=== PATIENT | female | born 1965 | race Caucasian/White ===

== ENCOUNTER → 2017-04-19 | Outpatient (CLI) | payer OTHER ==
[~2017-04-19] MED LIST: ADVAIR 100/501 E1 INH; ALLEGRA180 MG PO; ANTIHISTAMINE PO; ANTIVERT/2525 MG PO; BAYER GENUINE325 M1 PO; CLARITIN10 MG PO; CORDROL20 MG PO; EPI EZ PEN1 MG/ML IM; EPI-PEN1 MG/ML IM; EPI-PEN1 MG/ML MR; EPIPEN 2-PAK1 MG/ML MR; FLONASE 0.05% 121 EA NAS; HYDR25T PO; MEDROL DOSEPAK4 MG PO; MOTRIN800 MG PO; NKHM; NORFLEX100 MG PO; PEPCID20 MG PO; PREDNISONE50 MG PO; SPIRIVA 5 CAPS18 MCG INH; SPIRIVA18 MCG INH; ULTRAM50 MG PO; VENTOLIN H0.09 MG/AC INH; ZITHROMAX250 MG PO; Zofran4 MG PO
[2017-04-21 01:08] LABS: FECAL WBC Final report (None Seen)
== END | disposition home or self-care (01) ==
LOC: LAB 10:42
PROVIDERS: Nurse Practitioner Family
DX: R19.7 Diarrhea, unspecified (principal)

== ENCOUNTER → 2017-08-17 | Day surgery (SDC) | payer OTHER ==
[~2017-08-17] VITALS: Ht 165.1 cm; Wt 89.8 kg
[~2017-08-17] MED LIST changes: +TOPROL XL25 MG PO
--- NOTE | ~2017-08-17 | O ---
[place], [place] OPERATIVE NOTE NAME: LAN RUBY UNIT #: [id number] ROOM: DOCTOR: IRWIN MARTIN MD BIRTHDATE: [birth year] DOS: 08/17/2017 GASTROENDOSCOPIC REPORT. INDICATIONS: This is a 51-year-old who has presented with change in bowel habits, alteration in bowel, constipation, diarrhea, undergoing investigation. ALLERGIES: NONSTEROIDAL ANTI-INFLAMMATORIES and SULFA. FAMILY HISTORY: Grandmother with gastric carcinoma. PAST SURGICAL HISTORY: . PAST MEDICAL HISTORY: Hypertension, asthma. SOCIAL HISTORY: Smoker, nonalcohol consumer. PROCEDURE: Today's procedure part of investigation is colonoscopy plus polypectomy. PREMEDICATION: Versed and Diprivan. SCOPE: Olympus forward-viewing colonoscope 10L video. REPORT: After putting the patient in the left lateral position and after application of lubricant to the scope, the scope was introduced. Thereafter, under direct visualization, I advanced through the length of colon without difficulty. Diverticulosis was identified. Sessile polypoid lesion in rectal pouch with piecemeal polypectomy removed. Base of the cecum explored, appendiceal orifice identified, and ileocecal valve was defined. The patient was gradually extubated from ascending, transverse, descending colon. She tolerated the procedure well. IMPRESSION: Sessile colonic polyp, sigmoid colon, status post piecemeal polypectomy, diverticulosis. PLAN AND DISCUSSION: An element of irritable bowel syndrome in this patient is eminent. I am going to start her on dicyclomine 10 mg 1 every day. High-fiber diet was recommended. Follow up as outpatient routinely with you in office, p.r.n. visit with us in GI Clinic. I thank you very much again Alecia Geovanna Galvin for your kind referral. Photographic series have been attached to the chart for future reference and documentation. [place], [place] OPERATIVE NOTE NAME: LAN RUBY UNIT #: [id number] ROOM: DOCTOR: IRWIN MARTIN MD BIRTHDATE: [birth year] IRWIN MARTIN MD CM:OPRECORD:OPERATIVE NOTE 1210 GEOVANNA MARTIN MD 08/17/17 1338 interface
[2017-08-17 10:45] VITALS: BP 156/82
[2017-08-17 12:05] VITALS: BP 125/60
[2017-08-17 12:20] VITALS: BP 130/60
[2017-08-17 12:35] VITALS: BP 137/74
== END | disposition home or self-care (01) ==
LOC: SDC 08-15 10:15
DX: K62.1 Rectal polyp (principal); I10 Essential (primary) hypertension; J44.9 Chronic obstructive pulmonary disease, unspecified; F17.210 Nicotine dependence, cigarettes, uncomplicated; K57.30 Diverticulosis of large intestine without perforation or abscess without bleeding; Z80.0 Family history of malignant neoplasm of digestive organs; Z98.890 Other specified postprocedural states; Z88.8 Allergy status to other drugs, medicaments and biological substances; Z88.2 Allergy status to sulfonamides; Z82.49 Family history of ischemic heart disease and other diseases of the circulatory system

== ENCOUNTER → 2017-09-14 | Outpatient (CLI) | payer OTHER | END | disposition home or self-care (01) | LOC: RAD 14:54 | DX: J44.9 Chronic obstructive pulmonary disease, unspecified (principal); I10 Essential (primary) hypertension; M41.84 Other forms of scoliosis, thoracic region; M41.86 Other forms of scoliosis, lumbar region; Z87.891 Personal history of nicotine dependence ==

== ENCOUNTER → 2017-10-04 | Outpatient (CLI) | payer OTHER ==
[~2017-10-04] MED LIST changes: +ALL DAY ALLERGY10 MG PO; +EPIPEN 2-P0.3 MG/0.3 IJ; +LEVAQUIN750 M1 PO; +LOPRESSOR25 MG PO; +LOSARTAN POTASS50 M1 PO; +PREDNISONE10 MG PO
== END | disposition home or self-care (01) ==
LOC: MAMMO 15:20
DX: Z12.31 Encounter for screening mammogram for malignant neoplasm of breast (principal)

== ENCOUNTER 2017-10-05 03:33 | Inpatient (IN) | payer OTHER ==
[~2017-10-05] VITALS: Ht 165.1 cm; Wt 90.9 kg
[2017-10-05] VITALS (9 sets, daily range): BP systolic 111–165; BP diastolic 60–103
--- NOTE | ~2017-10-05 | CON ---
[place], [place] REPORT OF CONSULTATION [facility]: LAN [id number] UNIT #: [id number] ROOM: 407 DOCTOR: FAITH BARROSO DO BIRTHDATE: [birth year] DOS: 10/06/2017 This is to be attached to Dr. Jordan's consult note, which he will dictate separately. REASON FOR CONSULTATION: Shortness of breath. CHIEF COMPLAINT: Dyspnea. HISTORY OF PRESENT ILLNESS: The patient is a 51-year-old female who presented with complaints of shortness of breath. They have been persistent for several weeks and she states that she had recently been treated with a course of doxycycline and prednisone as well as albuterol and her symptoms did not improve significantly. She states that over the last several days, she has felt increasingly short of breath and she feels dehydrated. She has a history of emphysema and asthma, but she is not oxygen dependent. She denies any chest pain, any nausea, vomiting, diarrhea, dysuria or any other symptoms. PAST MEDICAL HISTORY: Positive for emphysema, hypertension, irritable bowel syndrome, asthma, obesity and tobacco abuse. PAST SURGICAL HISTORY: Positive for a section, colonoscopy and arthroscopy of the left knee. SOCIAL HISTORY: The patient does smoke half a pack a day and has done so for at least 30 years. Alcohol and drug use negative. FAMILY HISTORY: Father is at age 56 from brain cancer. Mother is alive and has asthma. ALLERGIES: SULFA ANTIBIOTICS, AMOXICILLIN, IBUPROFEN. HOME MEDICATIONS: Cetirizine, metoprolol and Spiriva. REVIEW OF SYSTEMS: GENERAL: Denies fevers or chills. HEENT: Denies vision changes, drainage, discharge, hearing changes, throat pain. CARDIOVASCULAR: Denies chest pain, palpitations or lower extremity edema. RESPIRATORY: Reports shortness of breath, but denies hemoptysis, wheezing or productive cough. ABDOMINAL: Denies any abdominal pain, nausea, vomiting, diarrhea. GENITOURINARY: Denies dysuria, hematuria or frequency. NEUROLOGIC: Denies any lightheadedness or dizziness. PSYCHIATRIC: Denies any depression, anxiety, or drug dependence. ENDOCRINE: Denies polydipsia, heat intolerance or cold intolerance. SKIN: Denies any new rashes or lesions. PHYSICAL EXAMINATION: VITAL SIGNS: Most recent set of vital signs, temperature is 98.5, heart rate is [facility] [place], [place] REPORT OF CONSULTATION NAME: LAN RUBY [facility] [id number] UNIT #: [id number] ROOM: 407 DOCTOR: FAITH BARROSO DO BIRTHDATE: [birth year], respiratory rate 20, blood pressure 108/60 and 95% on room air. GENERAL: Awake, alert, oriented, not in acute distress. HEENT: Head normocephalic, atraumatic. Eyes PERRL. No lesions, no ulcerations, nonicteric, no drainage. ENT: No lesions, no scars, no masses. NECK: Without lesions. Trachea midline. LUNGS: Shortness of breath. Minimal scattered wheezes. Mild to moderate diminishing in breath sounds. ABDOMEN: Soft, positive bowel sounds, nontender, nondistended. EXTREMITIES: No erythema, clubbing or cyanosis. NEUROLOGIC: Grossly intact without focal neuro deficit. PSYCHOLOGICAL: Good historian. Fair judgment and insight. SKIN: Warm and dry, no rashes, no nodules. LABORATORY DATA: CBC shows a white count of 14.8 after the initial 6.5 at the time of admission. Hemoglobin 12.3, hematocrit 37.7, platelet count 255. Chemistry: Sodium 142, potassium 4.2, chloride 108, carbon dioxide 24, BUN 10, creatinine 0.9. GFR is estimated more than 60. Glucose is 141. A1c is 5.8, calcium 8.8, phosphorus 1.4, magnesium 1.7, triglycerides 78, cholesterol 165, LDL 88, VLDL 16, HDL 61. Vitamin B12 is 217, vitamin D is 10.9, folate 11.97, TSH 0.273 and T4 is ____. IMAGING: Chest x-ray, there was no definitive acute cardiopulmonary disease as read by the radiologist. ASSESSMENT AND PLAN: 1. Acute on chronic obstructive pulmonary disease exacerbation. 2. Obesity. 3. Tobacco abuse. 4. Irritable bowel syndrome. 5. Hypertension. We will continue with the current treatment with DuoNebs, Solu-Medrol, Mucinex, Rocephin and azithromycin. Oxygen is being titrated. The patient seems to be stable. Smoking cessation was discussed. Nicotine replacement if needed. We will reevaluate tomorrow. Otherwise, continue with current care. FAITH BARROSO DO [place], [place] REPORT OF CONSULTATION NAME: LAN RUBY UNIT #: [id number] ROOM: [facility] DOCTOR: FAITH BARROSO DO BIRTHDATE: [birth year] CLAYTON JORDAN MD CM:CONSTR:REPORT OF CONSULTATION 1216 10/07/17 0553 interface
--- NOTE | ~2017-10-05 | PR ---
[place], [place] PROGRESS NOTE NAME: LAN RUBY UNIT #: [id number] ROOM: 407 DOCTOR: FAITH BARROSO DO BIRTHDATE: [birth year] DOS: 10/07/2017 ADDENDUM This progress noted to be attached that dictated separately by Dr. Jordan. SUBJECTIVE: The patient was evaluated today. She is awake, alert, responsive. No nausea, vomiting, diarrhea, chest pain or dizziness. She states her breathing is significantly improved, but she states she is still having some wheezing. No acute events overnight. OBJECTIVE EXAMINATION: VITAL SIGNS: Most recent set of vital signs, temperature 98.5, pulse rate 75, respiratory rate 20, blood pressure 135/74, bedside pulse oximetry is 97% on room air. GENERAL: The patient awake, alert, oriented, in no acute distress. CARDIOVASCULAR: S1, S2 audible. No abnormal rhythm and normal rate. PULMONARY: Diminished breath sounds with minimal wheezing, no crackles, no rhonchi can be heard. EXTREMITIES: Lower extremities, no edema or erythema. NEUROLOGIC: No acute neuro deficits. PSYCH: Good historian, good judgment and insight. LABORATORY DATA: WBC is 14.4, hemoglobin 11.9, hematocrit 37.4 and platelets 246. Sodium is 144, potassium 4.1, chloride 110, carbon dioxide 24, BUN 14, creatinine 0.89, glucose 143. Hemoglobin A1c is 5.8, calcium 8.5. IMAGING: X-ray done this morning showed normal chest evaluation, clear lung delacruz as read by the radiologist. IMPRESSION AND PLAN: 1. Acute exacerbation of chronic obstructive pulmonary disease. 2. Acute asthma exacerbation. The patient has been on Solu-Medrol 60 b.i.d. as well as azithromycin will continue with breathing treatments, steroids and antibiotics. The patient is okay for being discharged at the discretion of the primary team. For more information, please see Dr. Jordan's progress note. FAITH BARROSO DO [place], [place] PROGRESS NOTE NAME: LAN RUBY UNIT #: [id number] ROOM: 407 DOCTOR: FAITH BARROSO DO BIRTHDATE: [birth year] CLAYTON JORDAN MD CM:CECILIA [id number] FAITH BARROSO DO 10/10/17 1050 interface
--- NOTE | ~2017-10-05 | PR ---
[place], [place] PROGRESS NOTE NAME: [id number] UNIT #: [id number] ROOM: 407 DOCTOR: JULIAN PRESTON MD,CLAYTON BIRTHDATE: [birth year] DOS: 10/07/2017 SUBJECTIVE: The patient was independently seen and examined with [id number] encounter. History was otherwise personally confirmed. Physical examination performed. The assessment and management personally completed for this patient. The patient was seen by the medical accounts receivable specialist, his note was approved as well. She has been noted progressive reduction and improvement in respiratory symptoms of coughing, shortness breath and wheezing. The beta marge were discontinued yesterday. OBJECTIVE: VITAL SIGNS: Essentially noted normal without any tachycardia. Heart rates were noted at 75 beats per minute. LUNGS: Noted without any wheezing or crackles. ABDOMEN: Soft, nontender. LABORATORY DATA: CBC for the patient, WBC count was 14.4, mild anemia, otherwise normal CBC. BMP: Glucose 143, that was normal. The chest x-ray 2-view which was obtained today for the patient as ordered. The patient was noted without any acute pulmonary infiltration. IMPRESSION: 1. Resolving exacerbation of chronic obstructive pulmonary disease and bronchial asthma concomitant with tracheobronchitis. 2. Chronic obesity. PLAN OF TREATMENT: Abstinence from tobacco use, tapering dose of prednisone, oral antibiotic on discharge and to continue Spiriva inhaler. She was also advised for followup in the office post discharge for comprehensive assessment for her pulmonary status. CLAYTON JORDAN MD CM:PNTRANS [id number] CLAYTON PRESTON MD 10/07/17 1146 interface
--- NOTE | ~2017-10-05 | CON ---
[place], [place] REPORT OF CONSULTATION NAME: LAN RUBY [facility] #: [id number] UNIT #: [id number] ROOM: 407 DOCTOR: CLAYTON ROSARIO MD BIRTHDATE: [birth year] DOS: 10/06/2017 ADDENDUM The patient was independently seen and examined today with [id number] encounter, history and physical examination personally confirmed. All the labs were reviewed. The assessment and management was personally made for the patient today's visit as well. The note done by the certified ophthalmic medical technician was approved. CONSULTATION REQUESTED BY: Hospitalist services. REASON FOR CONSULTATION: Assess the patient for COPD. HISTORY OF PRESENT ILLNESS: A 51-year-old female unknown to me with past history diagnosis of COPD, being treated by the primary care physician. She has been noted ongoing symptoms since 07/2017. She has been treated with the different doses of prednisone. The patient on different ____ antibiotic without any resolution of the symptom. Symptoms have been noted progressive. She does have symptoms of cough, which have been noted small intermittently. She denies any symptoms of chest pain or hemoptysis. Shortness of breath was noted the main symptom occurring with exertion with wheezing at time. The patient denies symptoms of hemoptysis. The patient stated that she had been noted tachycardia, started on metoprolol for the patient resulting in worsening of those stated symptoms since then as well. REVIEW OF SYSTEMS: Already completed by the certified ophthalmic medical technician. PAST MEDICAL HISTORY: 1. Diagnosis of COPD. 2. Essential hypertension. 3. Irritable bowel syndrome. 4. Bronchial asthma since childhood. 5. History of nicotine dependence. 6. Moderate obesity. PAST SURGICAL HISTORY: 1. The left knee arthroscopy. 2. x 2. 3. History of past colonoscopy. SOCIAL HISTORY: The patient was noted with history of tobacco use noted from the age of 17 years older or so and smoking about half a pack of cigarettes per day, does have 2 children, lives at home. Denies any history of alcohol use or any illicit drugs or any occupation related pulmonary exposure. FAMILY HISTORY: The patient's father at age 5656 years old, complication of brain cancer. Mother was reported with history of bronchial asthma. HOME MEDICATIONS: Reported use of Zyrtec, EpiPen, metoprolol tartrate, and [place], [place] REPORT OF CONSULTATION NAME: LAN RUBY UNIT #: [id number] ROOM: 407 DOCTOR: JULIAN PRESTON MD,CLAYTON BIRTHDATE: [birth year] [place]. DRUG ALLERGIES: REPORTED : 1. SULFA DRUGS. 2. AMOXICILLIN. 3. IBUPROFEN. PHYSICAL EXAMINATION: GENERAL: This is a 51-year-old female, who has been currently sitting on the bed without any acute distress at this time. VITAL SIGNS: Height of 5 feet 5 inches, weight of 200 pounds, BMI 33.3. Vital signs for the patient, which has been recorded showed the temperature noted as normal, respiratory rate recorded at 18, heart rate 98-119, blood pressure 130/73-140/78. Pulse oxygen saturation noted on room air 95% saturation. HEENT: Shows moderate obesity. Head was atraumatic. NECK: Supple. CARDIOVASCULAR: S1, S2 audible. LUNGS: Show no reduction in the breath sounds with reduced air exchange with scattered expiratory wheezing, no crackles. ABDOMEN: Soft, obese, nontender, bowel sounds present. EXTREMITIES: Shows mild to moderate obesity without edema, clubbing, cyanosis. CENTRAL NERVOUS SYSTEM: Cranial nerves 2-12 intact. MUSCULOSKELETAL: No deformities visible. SKIN: No lesions or rashes. LABORATORY AND DIAGNOSTIC DATA: Reviewed on 10/05/2017, CBC was essentially noted to normal. The PT/INR was normal on 10/05/2017; arterial blood gas 10/05/2017 pO2 was noted as 43, pH 7.36, pCO2 of 44.5. CMP of 10/05/2017 was noted with glucose 107, BUN and creatinine were normal. Remaining electrolytes normal. CK-MB and troponin were normal. CBC this morning, WBC count 14.8, hemoglobin 12.3, hematocrit 37.7, platelet counts were normal, 92% segmented neutrophils. BMP, normal BUN and creatinine. Glucose 141. Chest x-ray, 1-view, which was done in the Emergency Room was noted without any acute pulmonary infiltration. IMPRESSION: 1. The patient who has been currently admitted to the hospital noted with acute hypoxic respiratory failure, progressive worsening of respiratory status, resulting in acute exacerbation of bronchial asthma and exacerbation of chronic obstructive pulmonary disease, severity of bronchial asthma was unknown. 2. History of chronic nicotine dependence. 3. Mild hyperglycemia secondary to use of corticosteroids. 4. Chronic moderate obesity as well. 5. Nicotine dependence. 6. The patient with the tachycardia most likely related to the exacerbation of underlying pulmonary disease, less likely and worsening of the symptoms of bronchospasm with use of the beta-blockers. PLAN OF TREATMENT: Continue the oxygen supplementation, maintain saturation 90% or greater. Continue current dose of Solu-Medrol 60 mg b.i.d. Her home [place], [place] REPORT OF CONSULTATION NAME: LAN RUBY UNIT #: [id number] ROOM: 407 DOCTOR: JULIAN PRESTON MD,CLAYTON BIRTHDATE: [birth year] medication, which has been resumed. The patient was noted with sinus tachycardia related to the exacerbation of chronic obstructive pulmonary disease, bronchial asthma rather than underlying intrinsic heart problem, a clinical consideration; however, the patient may require the assessment by the Cardiology with the echocardiogram and other assessment if necessary to exclude any cardiac dysrhythmias or underlying cardiac disease. For possible worsening of the symptoms, especially bronchial asthma, ____ considered use of the beta-blockers. I will discontinue the patient's beta marge at this time. Monitor the tachycardia. Hopefully, with the resolution of the exacerbation of chronic obstructive pulmonary disease and bronchial asthma, the tachycardia should resolve itself. Consider Cardiology consultation for this patient as well. Other supportive plan and management and care. Usual treatment, other supportive therapy, plan of care. Nicotine replacement patch to overcome the nicotine withdrawal as well. Obtain a PA lateral chest x-ray to exclude any hidden infiltration, area of atelectasis with the lateral view especially of the lower lobes to be done in the morning. Other supportive plan of management. Thanks for allowing me to participate in the care of this patient. CLAYTON JORDAN MD CM:CONSTR:REPORT OF CONSULTATION 1403 10/07/17 1309 interface
[~2017-10-05 03:33] MED LIST changes: -ALL DAY ALLERGY10 MG PO; -EPIPEN 2-P0.3 MG/0.3 IJ; -LEVAQUIN750 M1 PO; -LOPRESSOR25 MG PO; -LOSARTAN POTASS50 M1 PO; -PREDNISONE10 MG PO
[2017-10-05 04:02] LABS: BASO % 0.6 % (0.0-1.0); EOS # 0.6 10*3/uL (0.0-0.4); EOS % 8.4 % (1.0-4.0); HEMOGLOBIN 13.8 g/dl (12.0-16.0); LYMPH # 2.7 10*3/uL (1.3-4.4); MEAN CELL VOLUME 96.3 fl (81.0-99.0); MEAN CORPUSCULAR HGB 31.7 pg (27.0-31.0); MEAN CORPUSCULAR HGB CONC 32.9 g/dl (33.0-37.0); MEAN PLATELET VOLUME 9.5 fl (9.6-12.3); MONO # 0.4 10*3/uL (0.1-1.0); MONO % 5.4 % (3.0-9.0); NEUT # 2.8 10*3/uL (2.3-7.9); NEUT % 43.3 % (47.0-73.0); PLATELET COUNT AUTOMATED 278 10*3/uL (130-400); RED BLOOD COUNT 4.36 10*6/uL (4.10-5.10); RED CELL DISTRI WIDTH 14.4 % (0-14.5); WHITE BLOOD COUNT 6.5 10*3/uL (4.8-10.8)
[2017-10-05 04:09] LABS: INTERNATIONAL NORM RATIO 0.9 (2.0-3.5)
[2017-10-05 04:16] LABS: ABG BASE EXCESS -0.5 mmol/L (-2.0-2.0); ABG HCO3 24.6 mmol/l (22-26); ABG O2 SATURATION 78.7 % (95-97); ARTERIAL BLOOD GAS PCO2 44.5 mmHg (35-45); ARTERIAL BLOOD GAS PH 7.361 (7.35-7.45); ARTERIAL BLOOD GAS PO2 43.8 mmHg (80-90)
[2017-10-05 04:19] LABS: ALBUMIN 3.7 gm/dl (3.1-4.5); ALKALINE PHOSPHATASE 89 U/L (45-117); BUN 8 mg/dl (7-24); CHLORIDE 109 mmol/L (98-107); CREATININE 0.94 mg/dL (0.55-1.02); POTASSIUM 3.8 mmol/L (3.5-5.1); SGOT/AST 11 IU/L (3-35); SGPT/ALT 15 U/L (12-78); SODIUM 143 mmol/L (136-145); TOTAL PROTEIN 6.9 gm/dL (6.4-8.2)
[2017-10-05 04:20] LABS: TROPONIN I < 0.015 ng/ml (<0.045)
--- NOTE | 2017-10-05 05:14 | NUR ---
PT LYING IN BED IN ROOM WITH FAMILY. VSS. WILL CONTINUE TO MONITOR.
[2017-10-05 05:28] LABS: BILIRUBIN NEGATIVE (NEGATIVE); BLOOD 2+ (NEGATIVE); CLARITY SL CLOUDY (CLEAR); COLOR YELLOW (YELLOW); GLUCOSE NEGATIVE (NEGATIVE); KETONE NEGATIVE (NEGATIVE); LEUKO ESTERASE 1+ (NEGATIVE); NITRITE NEGATIVE (NEGATIVE); PH 5.5 (5.0-9.0); SPECIFIC GRAVITY 1.015 (1.005-1.030); UROBILINOGEN 0.2 E.U./dl (0.2-1.0)
[2017-10-05 05:36] LABS: RBC 16-20 rbc/hpf (0-2)
[2017-10-05 05:37] LABS: BACTERIA 2+
--- NOTE | 2017-10-05 05:50 | NUR ---
A 51, admitted to , under the services of LIOR Avila DO with a diagnosis of EXACERBATION OF COPD. Chief complaint is DYPNEA X1 MONTH. Patient arrived via stretcher from ER. Monitor applied. Initial assessment completed. Vital signs taken and recorded. LIOR AVILA DO notified of admission to the unit. Orders received. See assessment for past medical history, medications and allergies. Patient and/or family oriented to unit. [facility] visitation policy reviewed. Clothing/patient valuable form completed. KALPESH JOSE
[2017-10-05] MEDS ORDERED: ALL DAY ALLERGY10 MG PO (06:07)
[2017-10-05] MEDS ORDERED: EPIPEN 2-P0.3 MG/0.3 IJ (06:20)
[2017-10-05 12:05] LABS: MEAN CELL VOLUME 95.8 fl (81.0-99.0); MEAN CORPUSCULAR HGB 31.9 pg (27.0-31.0); MEAN CORPUSCULAR HGB CONC 33.3 g/dl (33.0-37.0); MEAN PLATELET VOLUME 9.6 fl (9.6-12.3); PLATELET COUNT AUTOMATED 274 10*3/uL (130-400); RED BLOOD COUNT 4.07 10*6/uL (4.10-5.10); RED CELL DISTRI WIDTH 14.3 % (0-14.5); WHITE BLOOD COUNT 6.5 10*3/uL (4.8-10.8)
[2017-10-05 12:22] LABS: TOTAL CELLS COUNTED 100 #CELLS
[2017-10-05 12:23] LABS: PLATELET SUFFICIENCY NORMAL (NORMAL)
[2017-10-05 12:28] LABS: CREATININE 1.18 mg/dL (0.55-1.02); PHOSPHOROUS 1.4 mg/dL (2.5-4.9); POTASSIUM 3.4 mmol/L (3.5-5.1)
--- NOTE | 2017-10-05 13:06 | NUR ---
PATIENT IS ORDERED BOTH ZITHROMAX AND VIBRAMYCIN. THIS MAY BE A DUPLICATION IN ANTIMICROBIAL COVERAGE. PLEASE ASSESS NEED FOR BOTH. THANKS, KEIRA LOPEZ, PHARMD [facility]
[2017-10-05 13:18] LABS: VITAMIN D, 25-HYDROXY 10.9 ng/mL (30-100)
--- NOTE | 2017-10-05 13:59 | NUR ---
SPOKE WITH DR RIVERA REGARDING ELEVATED HEART RATE. PER DOC, WILL REVIEW MEDICATIONS.
[2017-10-05] MEDS ORDERED: LOPRESSOR25 MG PO (15:25)
--- NOTE | 2017-10-05 20:06 | NUR ---
LAB RESULTS AND ORDERS REVIEWED
[2017-10-06] VITALS: BP 110/64
[2017-10-06 06:10] LABS: HEMATOCRIT 37.7 % (37.0-47.0); HEMOGLOBIN 12.3 g/dl (12.0-16.0); MEAN CELL VOLUME 97.9 fl (81.0-99.0); MEAN CORPUSCULAR HGB 31.9 pg (27.0-31.0); MEAN CORPUSCULAR HGB CONC 32.6 g/dl (33.0-37.0); MEAN PLATELET VOLUME 9.7 fl (9.6-12.3); PLATELET COUNT AUTOMATED 255 10*3/uL (130-400); RED BLOOD COUNT 3.85 10*6/uL (4.10-5.10); RED CELL DISTRI WIDTH 14.5 % (0-14.5); WHITE BLOOD COUNT 14.8 10*3/uL (4.8-10.8)
[2017-10-06 06:32] LABS: BUN 10 mg/dl (7-24); CHLORIDE 108 mmol/L (98-107); CHOLESTEROL 165 mg/dL (<200); POTASSIUM 4.2 mmol/L (3.5-5.1); SODIUM 142 mmol/L (136-145); TRIGLYCERIDES 78 mg/dl (<150); VLDL CHOLESTEROL 16 mg/dL (6-40)
[2017-10-06 06:42] LABS: FREE T4 0.87 ng/dl (0.76-1.46); HDL CHOLESTEROL 61 mg/dl (40-60); LDL CHOLESTEROL 88 mg/dL (9-159); THYROID STIM HORMONE (HS) 0.273 uIU/ml (0.358-4.75)
[2017-10-06 06:59] LABS: TOTAL CELLS COUNTED 100 #CELLS
[2017-10-06 07:00] LABS: PLATELET SUFFICIENCY NORMAL (NORMAL)
[2017-10-06 08:00] VITALS: BP 122/64; BP 140/78
--- NOTE | 2017-10-06 08:00 | NUR ---
RESTING AT SIDE OF BED EATING BREAKFAST. DENIES C/O CHEST PAIN OR S.O.B. CALL LIGHT SYSTEM REINFORCED FOR ASSISTANCE. SEE SHIFT ASSESSMENT.
--- NOTE | 2017-10-06 08:49 | NUR ---
DR JORDAN HERE & IS AWARE OF CONSULT.
--- NOTE | 2017-10-06 09:00 | NUR ---
Yarn Texture Machine Operator in to talk to patient. Patient states lives at home with . There are few steps in the home. Physician: chan krishna Pharmacy: [facility] health services: none Patient's level of ADLs: INDEPENDENT Patient has working utilities: all working DME: none Follow-up physician's appointment after d/c: will be made by hospitalist nurse director upon discharge Does patient want to access PORTAL?: no Discharge plan discussed with patient, patient lives at home with , she is independent in adls and ambulation, works, drives, patient states she will be going back home and denies any home needs. HARRY ALDRIDGE
[2017-10-06 12:00] VITALS: BP 108/60
--- NOTE | 2017-10-06 15:32 | NUR ---
Shift chart check completed.24 HR chart check completed.
[2017-10-06 16:00] VITALS: BP 136/69
[2017-10-06 20:00] VITALS: BP 125/72
--- NOTE | 2017-10-06 20:00 | NUR ---
LAB RESULTS AND ORDERS REVIEWED
[2017-10-07] VITALS: BP 112/56
[2017-10-07 06:26] LABS: HEMATOCRIT 37.4 % (37.0-47.0); HEMOGLOBIN 11.9 g/dl (12.0-16.0); MEAN CELL VOLUME 98.4 fl (81.0-99.0); MEAN CORPUSCULAR HGB 31.3 pg (27.0-31.0); MEAN CORPUSCULAR HGB CONC 31.8 g/dl (33.0-37.0); MEAN PLATELET VOLUME 9.5 fl (9.6-12.3); PLATELET COUNT AUTOMATED 246 10*3/uL (130-400); RED CELL DISTRI WIDTH 14.7 % (0-14.5); WHITE BLOOD COUNT 14.4 10*3/uL (4.8-10.8)
[2017-10-07 06:49] LABS: BUN 14 mg/dl (7-24); CHLORIDE 110 mmol/L (98-107); CREATININE 0.89 mg/dL (0.55-1.02); POTASSIUM 4.1 mmol/L (3.5-5.1); SODIUM 144 mmol/L (136-145)
[2017-10-07 07:25] LABS: PLATELET SUFFICIENCY NORMAL (NORMAL); TOTAL CELLS COUNTED 100 #CELLS
[2017-10-07 08:00] VITALS: BP 135/74
--- NOTE | 2017-10-07 08:00 | NUR ---
RESTING AT SIDE OF BED, STATES "FEELING ALOT BETTER" EASY RESPIRATIONS WITH SKIN W/D. SEE SHIFT ASSESSMENT.
--- NOTE | 2017-10-07 09:00 | NUR ---
case management visits with patient, patient denies any home needs
[2017-10-07] MEDS ORDERED: LEVAQUIN750 M1 PO (09:43)
[2017-10-07] MEDS ORDERED: PREDNISONE10 MG PO (09:43)
--- NOTE | 2017-10-07 11:18 | NUR ---
PT DECLINES FLU VACCINE.
[2017-10-07] MEDS ORDERED: LOSARTAN POTASS50 M1 PO (11:29)
--- NOTE | 2017-10-07 11:29 | NUR ---
PT QUESTIONING GOING HOME ON LOPRESSOR SINCE IS WAS DISCONTINUED WHILE SHE WAS HERE & TOOK COZAAR. SPOKE WITH DR RIVERA & INFORMED THAT PT REQUESTS TO SPEAK WITH HIM REGARDING THIS ISSUE.
--- NOTE | 2017-10-07 11:52 | NUR ---
DR RIVERA IN TO SEE PT & MAKE CLARIFICATIONS TO MED LIST. PT VOICES UNDERSTANDING.
--- NOTE | 2017-10-07 13:00 | NUR ---
Discharge instructions reviewed with patient/family. Patient receptive and verbalizes understanding. Written instructions given to patient/family. RICARDO CUI
== END 2017-10-07 13:00 | disposition home or self-care (01) | DRG 871 ==
LOC: ED 03:33 → EDHOLD 04:30 → 4E 04:30
PROVIDERS: Emergency Medicine Emergency Medical Services; Internal Medicine; ADMIT Internal Medicine
DX: A41.9 Sepsis, unspecified organism (principal); J96.01 Acute respiratory failure with hypoxia; J44.1 Chronic obstructive pulmonary disease with (acute) exacerbation; J45.41 Moderate persistent asthma with (acute) exacerbation; D72.1 Eosinophilia; F17.200 Nicotine dependence, unspecified, uncomplicated; E87.8 Other disorders of electrolyte and fluid balance, not elsewhere classified; K58.2 Mixed irritable bowel syndrome; E66.9 Obesity, unspecified; D72.820 Lymphocytosis (symptomatic); E53.8 Deficiency of other specified B group vitamins; E55.9 Vitamin D deficiency, unspecified; K58.9 Irritable bowel syndrome, unspecified; Z71.6 Tobacco abuse counseling; Z88.2 Allergy status to sulfonamides; Z88.1 Allergy status to other antibiotic agents; Z82.49 Family history of ischemic heart disease and other diseases of the circulatory system; Z83.3 Family history of diabetes mellitus

== ENCOUNTER 2019-05-16 21:21 | Inpatient (IN) | payer BC ==
[~2019-05-16] VITALS: Ht 165.1 cm; Wt 94.5 kg
--- NOTE | ~2019-05-16 | EKG ---
[place], [place] ELECTROCARDIOGRAM REPORT NAME: LAN RUBY UNIT #: [id number] ROOM: 504 DOCTOR: OLEGARIO DRAFT REPORT BIRTHDATE: [birth year] [facility] Test Date: 2019-05-17 Test Time: 02:53:06 Pat Name: LAN RUBY Department: Room: [facility] Gender: F Crystal Growing Technician: Giuliana [place] : 1965 Requested By: NISHA FERNANDEZ Order Number: [id number] Reading MD: Jhony Flores MD Measurements Intervals [place] Rate: 62 P: 47 MI: 165 QRS: -65 QRSD: 132 T: 36 QT: 466 QTc: 474 Interpretive Statements Sinus rhythm Nonspecific IVCD with LAD Compared to ECG 08/22/2018 00:09:42 Intraventricular conduction delay now present Sinus tachycardia no longer present T-wave abnormality no longer present Possible ischemia no longer present Electronically Signed On 05-17-2019 12:02:57 PDT by Jhony Flores MD CM:EKGRPT:ELECTROCARDIOGRAM REPORT 0253 1202 NISHA HILARIO DRAFT REPORT NISHA FERNANDEZ DO
--- NOTE | ~2019-05-16 | CON ---
[place], [place] REPORT OF CONSULTATION NAME: LAN RUBY UNIT #: [id number] ROOM: 504 DOCTOR: ELIO SWENSONKATELYNN BIRTHDATE: [birth year] DOS: 05/17/2019 HISTORY OF PRESENT ILLNESS: A 53-year-old female admitted with chest pressure. EKG revealed right bundle branch block. No acute ST-T abnormalities. Cardiac enzymes have been negative. The patient did have an echocardiogram. For some reason, this report is not there, but inquiring showed an ejection fraction of about 60-65%. I am going to review the echocardiogram to assess the valvular status. Did have a stress test done in 2017. It was negative. PAST MEDICAL HISTORY: Significant for hypertension, tobacco abuse, obesity. FAMILY HISTORY: Positive for ____ and also she does have centrilobular emphysema, history of drug-induced anaphylaxis, tobacco abuse. PAST SURGICAL HISTORY: Arthroscopy, , and colonoscopy. SOCIAL HISTORY: Does not drink alcohol. Still continues to smoke half a pack per day of cigarettes. ALLERGIES: Multiple to SULFA, AMOXICILLIN, HYDROCHLOROTHIAZIDE, LISINOPRIL, and LOSARTAN. HOME MEDICATIONS: Amlodipine. REVIEW OF SYSTEMS: CONSTITUTIONAL: No fever, no chills. HEENT: No visual disturbance or hearing problems. CARDIOVASCULAR: Reports chest pressure. RESPIRATORY: Denies shortness of breath. GASTROINTESTINAL: No nausea, no vomiting. GENITOURINARY: No dysuria. NEUROLOGIC: Stable. PHYSICAL EXAMINATION: VITAL SIGNS: Blood pressure is 120/60. She is in sinus rhythm. HEENT: Unremarkable. NECK: Supple, no JVD. LUNGS: Diminished air entry. HEART: Heart sounds are regular. Positive wheezing. ABDOMEN: Soft, obese. EXTREMITIES: About 1-2+ edema. NEUROLOGICAL: Intact. LABORATORY DATA: Sodium 139, potassium 3.6, creatinine is 0.9. Liver functions are normal. Troponins have been negative. INR is normal. Hemoglobin and hematocrit within normal limits. Chest x-ray showed no CHF. IMPRESSION: Chest pressure, atypical pain, bundle branch block, right bundle not left bundle, hypertension, hyperlipidemia, irritable bowel syndrome, tobacco abuse. [place], [place] REPORT OF CONSULTATION NAME: LAN RUBY UNIT #: [id number] ROOM: [facility] DOCTOR: KATELYNN BALLARD MD BIRTHDATE: [birth year] RECOMMENDATIONS: We will review the echocardiogram. Initial report shows EF is normal. Continue the present medications. Echo from 05/06/2019 showed EF of 60-65%, normal diastolic function. Trace of mitral and tricuspid regurgitation. JORGE LUIS score is 0. RECOMMENDATION: To continue the present care as ordered. EKG shows nonspecific ST-T ____ sinus tachycardia. The leg swelling is probably related to the amlodipine. Unfortunately, the patient cannot tolerate the losartan and she is allergic to that if the leg swelling continues, we have no other choice, switch to other antihypertensives like beta blockers with the metoprolol XL, starting like 25/50 depending upon the patient's blood pressure, consideration should be given to do a stress test as an outpatient as the ejection fraction is normal and I will follow up. Thank you for this interesting consultation. KATELYNN BALLARD MD CM:CONSTR:REPORT OF CONSULTATION 0933 05/17/19 1037 interface
--- NOTE | ~2019-05-16 | EKG ---
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: JESSIKA VENTURA : 1965 Requested By: NISHA FERNANDEZ Order Number: [id number] Reading MD: Jhony Flores MD Measurements Intervals [place] Rate: 73 P: NM: QRS: -13 QRSD: 134 T: 26 QT: 398 QTc: 439 Interpretive Statements Atrial fibrillation Right bundle branch block Baseline wander in lead(s) V4,V5 Compared to ECG 08/22/2018 00:09:42 Right bundle-branch block now present Sinus tachycardia no longer present T-wave abnormality no longer present Possible ischemia no longer present Electronically Signed On 05-17-2019 12:02:45 PDT by Jhony Flores MD CM:EKGRPT:ELECTROCARDIOGRAM REPORT 0000 1202 NISHA HILARIO DRAFT REPORT NISHA FERNANDEZ DO
--- NOTE | ~2019-05-16 | EKG ---
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1965 Requested By: NISHA FERNANDEZ Order Number: [id number] Reading MD: Jhony Flores MD Measurements Intervals [place] Rate: 100 P: 68 MS: 149 QRS: -35 QRSD: 134 T: 44 QT: 393 QTc: 507 Interpretive Statements Sinus tachycardia Right bundle branch block Artifact in lead(s) I,III,aVR,aVL,aVF Compared to ECG 08/22/2018 00:09:42 Right bundle-branch block now present T-wave abnormality no longer present Possible ischemia no longer present Electronically Signed On 05-17-2019 12:02:11 PDT by Jhony Flores MD CM:EKGRPT:ELECTROCARDIOGRAM REPORT 26 1202 NISHA HILARIO DRAFT REPORT NISHA FERNANDEZ DO
[~2019-05-16 21:21] MED LIST changes: +ALL DAY ALLERGY10 MG PO; +EPIPEN 2-P0.3 MG/0.3 IJ; +LEVAQUIN750 M1 PO; +LOPRESSOR25 MG PO; +LOSARTAN POTASS50 M1 PO; +PREDNISONE10 MG PO
[2019-05-16 21:25] VITALS: BP 156/88
[2019-05-16 21:48] LABS: BASO # 0.1 10*3/uL (0.0-0.1); BASO % 0.5 % (0.0-1.0); EOS # 0.5 10*3/uL (0.0-0.4); EOS % 4.8 % (1.0-4.0); HEMATOCRIT 40.8 % (37.0-47.0); HEMOGLOBIN 13.6 g/dl (12.0-16.0); LYMPH # 3.4 10*3/uL (1.3-4.4); LYMPH % 36.3 % (27.0-41.0); MEAN CELL VOLUME 95.8 fl (81.0-99.0); MEAN CORPUSCULAR HGB 31.9 pg (27.0-31.0); MEAN CORPUSCULAR HGB CONC 33.3 g/dl (33.0-37.0); MEAN PLATELET VOLUME 9.6 fl (9.6-12.3); MONO # 0.7 10*3/uL (0.1-1.0); MONO % 7.1 % (3.0-9.0); NEUT # 4.8 10*3/uL (2.3-7.9); NEUT % 51.1 % (47.0-73.0); PLATELET COUNT AUTOMATED 300 10*3/uL (130-400); RED BLOOD COUNT 4.26 10*6/uL (4.10-5.10); RED CELL DISTRI WIDTH 14.3 % (0-14.5); WHITE BLOOD COUNT 9.3 10*3/uL (4.8-10.8)
[2019-05-16 21:59] LABS: ACT PARTIAL THROMBO TIME 27.6 SECONDS (20.0-32.1); INTERNATIONAL NORM RATIO 0.9 (2.0-3.5)
[2019-05-16 22:07] LABS: ALBUMIN 3.8 gm/dl (3.1-4.5); ALKALINE PHOSPHATASE 93 U/L (45-117); BUN 12 mg/dl (7-24); CHLORIDE 108 mmol/L (98-107); CREATININE 0.97 mg/dL (0.55-1.02); POTASSIUM 3.6 mmol/L (3.5-5.1); SGOT/AST 14 IU/L (3-35); SGPT/ALT 20 U/L (12-78); SODIUM 139 mmol/L (136-145)
[2019-05-16 22:08] LABS: TROPONIN I < 0.015 ng/ml (<0.045)
[2019-05-16] MEDS ORDERED: ANORO ELLIPTA1 EACH INH (22:17)
[2019-05-16 22:18] VITALS: BP 156/88
[2019-05-16] MEDS ORDERED: AMLODIPINE BESY10 MG PO (22:18)
[2019-05-16 23:25] VITALS: BP 126/68
[2019-05-16 23:32] VITALS: BP 132/68
[2019-05-17 07:03] LABS: BASO % 0.6 % (0.0-1.0); EOS # 0.4 10*3/uL (0.0-0.4); EOS % 5.7 % (1.0-4.0); HEMATOCRIT 41.1 % (37.0-47.0); HEMOGLOBIN 13.1 g/dl (12.0-16.0); LYMPH # 2.3 10*3/uL (1.3-4.4); LYMPH % 36.5 % (27.0-41.0); MEAN CELL VOLUME 94.7 fl (81.0-99.0); MEAN CORPUSCULAR HGB 30.2 pg (27.0-31.0); MEAN CORPUSCULAR HGB CONC 31.9 g/dl (33.0-37.0); MEAN PLATELET VOLUME 9.7 fl (9.6-12.3); MONO # 0.4 10*3/uL (0.1-1.0); MONO % 6.5 % (3.0-9.0); NEUT # 3.2 10*3/uL (2.3-7.9); NEUT % 50.5 % (47.0-73.0); PLATELET COUNT AUTOMATED 274 10*3/uL (130-400); RED BLOOD COUNT 4.34 10*6/uL (4.10-5.10); RED CELL DISTRI WIDTH 14.1 % (0-14.5); WHITE BLOOD COUNT 6.3 10*3/uL (4.8-10.8)
[2019-05-17 07:25] LABS: CHLORIDE 109 mmol/L (98-107); POTASSIUM 3.9 mmol/L (3.5-5.1); SODIUM 141 mmol/L (136-145)
[2019-05-17 07:59] LABS: BUN 9 mg/dl (7-24); CREATININE 0.81 mg/dL (0.55-1.02); FREE T4 1.11 ng/dl (0.76-1.46); PHOSPHOROUS 3.8 mg/dL (2.5-4.9)
[2019-05-17 08:00] VITALS: BP 120/84
[2019-05-17 10:09] LABS: VITAMIN D, 25-HYDROXY 20.6 ng/mL (30-100)
[2019-05-17] MEDS ORDERED: TOPROL XL25 MG PO (10:59)
[2019-05-22] MEDS ORDERED: ANORO ELLIPTA1 EACH INH (05:51)
[2019-05-22] MEDS ORDERED: NORVASC10 MG PO (05:51)
== END 2019-05-17 11:35 | disposition home or self-care (01) | DRG 313 ==
LOC: ED 21:21 → EDHOLD 22:49 → 5E 22:49
PROVIDERS: Emergency Medicine; Internal Medicine Nephrology; ADMIT Internal Medicine
DX: R07.89 Other chest pain (principal); I45.10 Unspecified right bundle-branch block; E83.51 Hypocalcemia; J43.2 Centrilobular emphysema; J45.40 Moderate persistent asthma, uncomplicated; E66.09 Other obesity due to excess calories; I10 Essential (primary) hypertension; E53.8 Deficiency of other specified B group vitamins; K57.90 Diverticulosis of intestine, part unspecified, without perforation or abscess without bleeding; E78.5 Hyperlipidemia, unspecified; F17.210 Nicotine dependence, cigarettes, uncomplicated; I08.1 Rheumatic disorders of both mitral and tricuspid valves; K58.9 Irritable bowel syndrome, unspecified; R00.0 Tachycardia, unspecified; E87.8 Other disorders of electrolyte and fluid balance, not elsewhere classified; R73.9 Hyperglycemia, unspecified; Z71.6 Tobacco abuse counseling; Z88.8 Allergy status to other drugs, medicaments and biological substances; Z88.2 Allergy status to sulfonamides; Z88.1 Allergy status to other antibiotic agents; Z88.6 Allergy status to analgesic agent; Z82.5 Family history of asthma and other chronic lower respiratory diseases; Z82.49 Family history of ischemic heart disease and other diseases of the circulatory system; Z83.3 Family history of diabetes mellitus; Z80.8 Family history of malignant neoplasm of other organs or systems; Z79.899 Other long term (current) drug therapy; Z68.34 Body mass index [BMI] 34.0-34.9, adult

== ENCOUNTER → 2019-05-22 | Outpatient (CLI) | payer BC ==
[~2019-05-22] MED LIST changes: +AMLODIPINE BESY10 MG PO; +ANORO ELLIPTA1 EACH INH; +NORVASC10 MG PO
--- NOTE | ~2019-05-22 | ST ---
[place], [place] EXERCISE STRESS TEST REPORT NAME: LAN RUBY UNIT #: [id number] ROOM: DOCTOR: KATELYNN BALLARD MD BIRTHDATE: [birth year] DOS: 05/22/2019 LEXISCAN PORTION OF THE LEXISCAN CARDIOLITE Baseline echocardiogram shows normal sinus rhythm with a leftward axis with right bundle branch pattern, 0.4 mg of Lexiscan, duration of 10 seconds. No new EKG changes, persistent right bundle branch block. Blood pressure and heart rate responses normal. Does have some shortness of breath. Nuclear images will be reported separately. KATELYNN BALLARD MD CM:STRESS:EXERCISE STRESS TEST REPORT [id number] KATELYNN BALLARD MD
--- NOTE | 2019-05-22 07:08 | NUR ---
INFORMED CONSENT SIGNED FOR LEXISCAN STRESS TEST WITH DR. BALLARD. RESTING EKG RBBB, HR 71, BP 122/70. PULSE OX 98% AND LUNGS CLEAR BILATERALLY. COMPLETED ONE MINUE OF LEXISCAN PROTOCOL RECEIVING LEXISCAN 0.4MG IV OVER [address] CHANGES NOTED WITH NO ST CHANGES. PT C/O CHEST HEAVINESS. LAST RECOVERY HR 104, BP 126/60. WAITING NUCLEAR SCANNING IN STABLE CONDITION.
== END | disposition home or self-care (01) ==
LOC: CARD 00:57
DX: R07.9 Chest pain, unspecified (principal); R53.81 Other malaise

== ENCOUNTER → 2019-05-29 | Outpatient (CLI) | payer BC | END | disposition home or self-care (01) | LOC: RAD 11:05 | DX: M17.12 Unilateral primary osteoarthritis, left knee (principal); M25.462 Effusion, left knee ==

== ENCOUNTER → 2020-01-28 | Outpatient (CLI) | payer OTHER | END | disposition home or self-care (01) | LOC: RAD 13:51 | DX: R05 Cough (principal); R53.83 Other fatigue; R50.9 Fever, unspecified; M25.50 Pain in unspecified joint ==

== ENCOUNTER → 2020-02-13 | Outpatient (CLI) | payer OTHER | END | disposition home or self-care (01) | LOC: RAD 14:48 | DX: J01.90 Acute sinusitis, unspecified (principal); J44.9 Chronic obstructive pulmonary disease, unspecified; R50.9 Fever, unspecified; Z72.0 Tobacco use ==

== ENCOUNTER → 2020-07-01 | Outpatient (CLI) | payer OTHER ==
[2020-07-01 11:05] LABS: BASO % 0.7 % (0.0-1.0); EOS # 0.2 10*3/uL (0.0-0.4); EOS % 3.4 % (1.0-4.0); HEMATOCRIT 43.4 % (37.0-47.0); LYMPH # 2.1 10*3/uL (1.3-4.4); LYMPH % 36.1 % (27.0-41.0); MEAN CELL VOLUME 93.7 fl (81.0-99.0); MEAN PLATELET VOLUME 9.6 fl (9.6-12.3); MONO # 0.4 10*3/uL (0.1-1.0); MONO % 6.8 % (3.0-9.0); NEUT # 3.1 10*3/uL (2.3-7.9); NEUT % 52.8 % (47.0-73.0); PLATELET COUNT AUTOMATED 312 10*3/uL (130-400); RED BLOOD COUNT 4.63 10*6/uL (4.10-5.10); RED CELL DISTRI WIDTH 14.2 % (0-14.5); WHITE BLOOD COUNT 5.9 10*3/uL (4.8-10.8)
[2020-07-01 11:32] LABS: ALBUMIN 3.9 gm/dl (3.1-4.5); BUN 7 mg/dl (7-24); CHLORIDE 107 mmol/L (98-107); CREATININE 0.75 mg/dL (0.55-1.02); POTASSIUM 3.9 mmol/L (3.5-5.1); SODIUM 139 mmol/L (136-145)
[2020-07-01 11:42] LABS: ACT PARTIAL THROMBO TIME 28.5 SECONDS (20.0-32.1); INTERNATIONAL NORM RATIO 0.9 (2.0-3.5)
== END | disposition home or self-care (01) ==
LOC: CARD 10:13
PROVIDERS: Orthopaedic Surgery
DX: I45.10 Unspecified right bundle-branch block (principal); I44.4 Left anterior fascicular block; J44.9 Chronic obstructive pulmonary disease, unspecified; I10 Essential (primary) hypertension

== ENCOUNTER 2022-03-16 13:05 | Emergency (ER) | payer BC ==
[~2022-03-16] VITALS: Ht 165.1 cm; Wt 90.7 kg
[2022-03-16 13:40] LABS: BILIRUBIN Negative (Negative); BLOOD 3+ (Negative); CLARITY Turbid (Clear); COLOR Orange (Yellow); GLUCOSE Negative (Negative); KETONE Negative (Negative); LEUKO ESTERASE 2+ (Negative); NITRITE Negative (Negative)
[2022-03-16 13:48] LABS: BACTERIA 3+; MUCOUS 1+; RBC TNTC rbc/hpf (0-2); WBC 31-40 wbc/hpf (0-5)
[2022-03-16 14:02] LABS: BASO % 0.3 % (0.0-1.0); EOS # 0.1 10*3/uL (0.0-0.4); EOS % 1.2 % (1.0-4.0); HEMATOCRIT 45.2 % (37.0-47.0); LYMPH # 2.4 10*3/uL (1.3-4.4); LYMPH % 25.8 % (27.0-41.0); MEAN CORPUSCULAR HGB 30.9 pg (27.0-31.0); MEAN CORPUSCULAR HGB CONC 33.2 g/dl (33.0-37.0); MEAN PLATELET VOLUME 9.2 fl (9.6-12.3); MONO # 0.5 10*3/uL (0.1-1.0); MONO % 5.5 % (3.0-9.0); NEUT # 6.2 10*3/uL (2.3-7.9); NEUT % 66.9 % (47.0-73.0); PLATELET COUNT AUTOMATED 329 10*3/uL (130-400); RED BLOOD COUNT 4.86 10*6/uL (4.10-5.10); RED CELL DISTRI WIDTH 14.7 % (0-14.5); WHITE BLOOD COUNT 9.3 10*3/uL (4.8-10.8)
[2022-03-16 14:19] LABS: ALKALINE PHOSPHATASE 104 U/L (45-117); BUN 9 mg/dl (7-24); CHLORIDE 104 mmol/L (98-107); CREATININE 0.89 mg/dL (0.55-1.02); LIPASE 134 U/L (73-393); POTASSIUM 3.4 mmol/L (3.5-5.1); SGOT/AST 18 IU/L (3-35); SGPT/ALT 17 U/L (12-78); SODIUM 137 mmol/L (136-145); TOTAL PROTEIN 7.5 gm/dL (6.4-8.2)
[2022-03-16] MEDS ORDERED: CIPRO500 MG PO (15:20)
[2022-03-16] MEDS ORDERED: FLAGYL 375375 MG PO (15:20)
[2022-03-16] MEDS ORDERED: ZOFRAN4 MG PO (15:21)
== END 2022-03-16 15:39 | disposition home or self-care (01) ==
LOC: ED 13:05
PROVIDERS: Nurse Practitioner Family
DX: K52.9 Noninfective gastroenteritis and colitis, unspecified (principal); N39.0 Urinary tract infection, site not specified; Z88.6 Allergy status to analgesic agent; Z88.1 Allergy status to other antibiotic agents; Z88.8 Allergy status to other drugs, medicaments and biological substances; Z88.2 Allergy status to sulfonamides; Z79.899 Other long term (current) drug therapy; Z98.890 Other specified postprocedural states; F17.200 Nicotine dependence, unspecified, uncomplicated

== ENCOUNTER → 2023-01-03 | Outpatient (CLI) | payer BC ==
[~2023-01-03] MED LIST changes: +CIPRO500 MG PO; +FLAGYL 375375 MG PO; +ZOFRAN4 MG PO
== END | disposition home or self-care (01) ==
LOC: RAD 16:16
PROVIDERS: ATTEND Nurse Practitioner Family
DX: R05.9 Cough, unspecified (principal)

== ENCOUNTER → 2023-02-22 | Outpatient (CLI) | payer BC | END | disposition home or self-care (01) | LOC: RAD 15:07 | PROVIDERS: ATTEND Nurse Practitioner Family | DX: S40.011A Contusion of right shoulder, initial encounter (principal); S13.9XXA Sprain of joints and ligaments of unspecified parts of neck, initial encounter; X58.XXXA Exposure to other specified factors, initial encounter; Y93.89 Activity, other specified; Y92.89 Other specified places as the place of occurrence of the external cause; Y99.8 Other external cause status ==

== ENCOUNTER → 2023-05-10 | Outpatient (CLI) | payer BC ==
[2023-05-10 10:29] LABS: BASO % 0.5 % (0.0-1.0); EOS # 0.2 10*3/uL (0.0-0.4); EOS % 3.5 % (1.0-4.0); HEMATOCRIT 43.4 % (37.0-47.0); LYMPH % 32.4 % (27.0-41.0); MEAN CORPUSCULAR HGB 30.6 pg (27.0-31.0); MEAN CORPUSCULAR HGB CONC 32.3 g/dl (33.0-37.0); MEAN PLATELET VOLUME 9.2 fl (9.6-12.3); MONO # 0.3 10*3/uL (0.1-1.0); NEUT # 3.6 10*3/uL (2.3-7.9); NEUT % 58.3 % (47.0-73.0); PLATELET COUNT AUTOMATED 303 10*3/uL (130-400); RED BLOOD COUNT 4.57 10*6/uL (4.10-5.10); RED CELL DISTRI WIDTH 14.5 % (0-14.5); WHITE BLOOD COUNT 6.2 10*3/uL (4.8-10.8)
[2023-05-10 10:58] LABS: ALKALINE PHOSPHATASE 90 U/L (46-116); BUN 7 mg/dl (9-23); CHLORIDE 107 mmol/L (98-107); CHOLESTEROL 171 mg/dL (<200); LDL CHOLESTEROL 98 mg/dL (9-159); POTASSIUM 3.9 mmol/L (3.4-5.1); SGPT/ALT 10 U/L (10-49); TOTAL PROTEIN 6.8 gm/dL (6.0-8.0); TRIGLYCERIDES 113 mg/dl (<150)
== END | disposition home or self-care (01) ==
LOC: LAB 09:44
PROVIDERS: ATTEND Nurse Practitioner Family
DX: I10 Essential (primary) hypertension (principal); J44.9 Chronic obstructive pulmonary disease, unspecified; J30.2 Other seasonal allergic rhinitis; Z72.0 Tobacco use

== ENCOUNTER → 2023-05-23 | Outpatient (CLI) | payer BC | END | disposition home or self-care (01) | LOC: MRI 00:19 | PROVIDERS: ATTEND Nurse Practitioner Family | DX: R51.9 Headache, unspecified (principal) ==

== ENCOUNTER → 2024-02-13 | Outpatient (CLI) | payer BC ==
[2024-02-13 09:35] LABS: BASO % 0.4 % (0.0-1.0); EOS # 0.2 10*3/uL (0.0-0.4); EOS % 2.9 % (1.0-4.0); HEMATOCRIT 45.5 % (37.0-47.0); LYMPH # 2.4 10*3/uL (1.3-4.4); LYMPH % 32.3 % (27.0-41.0); MEAN CELL VOLUME 95.6 fl (81.0-99.0); MEAN CORPUSCULAR HGB 29.8 pg (27.0-31.0); MEAN CORPUSCULAR HGB CONC 31.2 g/dl (33.0-37.0); MEAN PLATELET VOLUME 9.3 fl (9.6-12.3); MONO # 0.4 10*3/uL (0.1-1.0); MONO % 5.7 % (3.0-9.0); NEUT # 4.4 10*3/uL (2.3-7.9); NEUT % 58.6 % (47.0-73.0); PLATELET COUNT AUTOMATED 287 10*3/uL (130-400); RED BLOOD COUNT 4.76 10*6/uL (4.10-5.10); RED CELL DISTRI WIDTH 14.5 % (0-14.5); WHITE BLOOD COUNT 7.5 10*3/uL (4.8-10.8)
[2024-02-13 10:22] LABS: ALKALINE PHOSPHATASE 86 U/L (46-116); BUN 7 mg/dl (9-23); CHLORIDE 106 mmol/L (98-107); CHOLESTEROL 142 mg/dL (<200); LDL CHOLESTEROL 76 mg/dL (9-159); SGPT/ALT 7 U/L (5-49); TOTAL PROTEIN 6.7 gm/dL (6.0-8.0); TRIGLYCERIDES 102 mg/dl (<150)
== END | disposition home or self-care (01) ==
LOC: LAB 09:17
PROVIDERS: ATTEND Nurse Practitioner Family
DX: I10 Essential (primary) hypertension (principal); D81.818 Other biotin-dependent carboxylase deficiency; G44.1 Vascular headache, not elsewhere classified

== ENCOUNTER → 2024-03-20 | Outpatient (CLI) | payer BC | END | disposition home or self-care (01) | LOC: LAB 16:24 | PROVIDERS: ATTEND Nurse Practitioner Family | DX: R23.9 Unspecified skin changes (principal) ==

== ENCOUNTER → 2024-05-08 | Outpatient (CLI) | payer BC | END | disposition home or self-care (01) | LOC: LAB 17:21 | PROVIDERS: ATTEND Nurse Practitioner Family | DX: J44.1 Chronic obstructive pulmonary disease with (acute) exacerbation (principal); I10 Essential (primary) hypertension; R05.8 Other specified cough; R09.81 Nasal congestion; Z20.822 Contact with and (suspected) exposure to COVID-19 ==

== ENCOUNTER → 2024-06-19 | Outpatient (CLI) | payer BC ==
[2024-06-19 11:27] LABS: BASO % 0.5 % (0.0-1.0); EOS # 0.2 10*3/uL (0.0-0.4); LYMPH # 2.1 10*3/uL (1.3-4.4); MEAN CELL VOLUME 95.7 fl (81.0-99.0); MEAN CORPUSCULAR HGB 30.9 pg (27.0-31.0); MEAN CORPUSCULAR HGB CONC 32.3 g/dl (33.0-37.0); MEAN PLATELET VOLUME 9.4 fl (9.6-12.3); MONO # 0.4 10*3/uL (0.1-1.0); NEUT # 3.3 10*3/uL (2.3-7.9); NEUT % 55.3 % (47.0-73.0); PLATELET COUNT AUTOMATED 292 10*3/uL (130-400); RED BLOOD COUNT 4.18 10*6/uL (4.10-5.10); RED CELL DISTRI WIDTH 14.6 % (0-14.5)
[2024-06-19 11:55] LABS: ALKALINE PHOSPHATASE 82 U/L (46-116); BUN 8 mg/dl (9-23); CHLORIDE 107 mmol/L (98-107); CHOLESTEROL 183 mg/dL (<200); LDL CHOLESTEROL 107 mg/dL (9-159); POTASSIUM 3.9 mmol/L (3.4-5.1); SGPT/ALT 10 U/L (5-49); TOTAL PROTEIN 6.6 gm/dL (6.0-8.0); TRIGLYCERIDES 94 mg/dl (<150)
== END | disposition home or self-care (01) ==
LOC: LAB 11:07 → EDSTATUS 14:15
PROVIDERS: ATTEND Nurse Practitioner Family
DX: J44.9 Chronic obstructive pulmonary disease, unspecified (principal); R73.01 Impaired fasting glucose; Z72.0 Tobacco use